=== PATIENT | female | born 1975 | race Caucasian/White ===

== ENCOUNTER 2016-05-10 15:34 | Emergency (ER) | payer OTHER ==
[~2016-05-10 15:34] MED LIST: ASPI81TA82 PO; FOLI400T30 PO; MULT-65 PO; PROG200C PO
--- NOTE | 2016-05-10 16:53 | PD ---
HPI Travel History International Travel<30 Days: No Contact w/Intl Traveler<30Days: No Known Affected Area: No History of Present Illness HPI This patient is a 40-year-old 9 para 0170 EDC is May 20, 2016 presently at 38 weeks and 4 days she presents with possibility of leaking fluid and irregular contractions Patient has a history of cerclage which was removed at 37 weeks she is GBS positive amnisure is negative care with Dr. De Los Santos course is significant only for the incompetent cervix with multiple spontaneous AB all before 12 weeks and the cerclage History Past Medical History Narrative Medical Ibuprofen gives her hives no major medical problems Obstetric History Obstetric History Spontaneous AB 7 patient delivered at 24 weeks female weight 1 lb. 14 oz. the baby Past Surgical History Narrative Surgical D&C and cerclage Family History Family History: Negative Social History Alcohol Use: No Tobacco Use: No Substance Abuse: No Allergies-Medications (Allergen,Severity, Reaction): Coded Allergies: Ciprofloxacin (Verified Allergy, Intermediate, 11/16/15) FACE TURNED RED Ibuprofen (Verified Allergy, Mild, Hives, 11/16/15) Home Meds Reported Medications Multiple Vitamin (Multi-Vitamin Daily)Daily Tab1 Tab PO DAILY 11/16/15 Folic Acid (Folate)400 Mcg Mel532 Mcg PO DAILY 11/16/15 Progesterone Micronized (Progesterone)200 Mg Iny857 Mg PO BID 11/10/15 Aspirin (Aspir-81)81 Mg Tab81 Mg PO HS 11/10/15 Review of Systems Genitourinary: Other (leaking fluid) Physical Exam Narrative GENERAL: Well-nourished, well-developed patient. Alert oriented 3 and cooperative in no acute distress CARDIOVASCULAR: Regular rate and rhythm without murmurs, gallops, or rubs. RESPIRATORY: Breath sounds equal bilaterally. No accessory muscle use. ABDOMEN/GI: Gravid consistent with stated gestational age Gravid to [-] weeks size Fundal Height: [-] GENITOURINARY: External Genitalia: intact and normal in appearance BUS glands: [-] Cervix: [-] Midline Dilatation: [-] 3 cm Effacement: [-] 50% effaced Station: [-] -2 stage Presentation: [-] Vertex Membranes: [intact Uterine Contractions: [-] Irregular FHT's: Category: [-]1 Baseline: [-] 140 Reactive: [-] + Variability: [-] Moderate idma-bo-mnxi variability Decels: [-] 0 EXTREMITIES: No cyanosis or edema. 2+ reflexes BACK: Nontender without obvious deformity. No CVA tendernes NEUROLOGICAL: Awake and alert. Motor and sensory grossly within normal limits. Five out of 5 muscle strength in all muscle groups. Normal speech. Data Data Vital Signs Reviewed: Yes (blood pressures 130/80 pulse 101 she is afebrile) [facility] Medical Record Reviewed: No Interpretation(s) 40-year-old 9 para 0 at 38 weeks and 4 days Not in labor No clinical evidence of ruptured membranes Advanced maternal age Incompetent cervix Status post cerclage removal Plan Patient has been monitored externally We'll discharge patient home Limited physical activity by mouth fluid hydration kick counts Keep next appointment with Dr. De Los Santos Physician Communication Spoke with Dr. De Los Santos he agrees with evaluation and management Diagnosis Diagnosis: Primary Impression: [place] Elena contractions Additional Impressions: Advanced maternal age in multigravida Qualified Code: O09.523 - Advanced maternal age in multigravida, third trimester History of incompetent cervix, currently Qualified Code: O09.293 - History of incompetent cervix, currently , third trimester Ruled Out: ruled out rupture of membranes Disposition: 01 DISCHARGE HOME Condition: Stable Patient Instructions: General Instructions, Early Labor Signs (ED), Movement (ED) Departure Forms: Tests/Procedures Adry Aceves MD May 10, 2016 16:53
== END 2016-05-10 16:50 | disposition home or self-care (01) ==
LOC: HOBED 15:34
DX: O47.1 False labor at or after 37 completed weeks of gestation (principal); Z3A.38 38 weeks gestation of pregnancy; O09.523 Supervision of elderly multigravida, third trimester; O34.33 Maternal care for cervical incompetence, third trimester
CPT/HCPCS: 59025; 84112

== ENCOUNTER 2016-05-13 10:07 | Inpatient (IN) | payer OTHER ==
[2016-05-13] VITALS (23 sets, daily range): BP systolic 100–146; BP diastolic 59–89; PULSE 101–128; RESP 18–20; TEMP 98.4–100.9
[2016-05-13] MEDS: OXYTOCIN 30 UNITS/NS 500ML PREMIX IV SCH ×2 (00:58→14:10)
[2016-05-13] MEDS ORDERED: LACTATED RINGER'S 1000 ML INJ 1,000 ML IV PRN (10:42)
--- NOTE | 2016-05-13 10:42 | HHI.HP ---
HPI Chief Complaint Complains of contractions every 5 minutes Date Seen: May 13, 2016 Travel History International Travel<30 Days: No Contact w/Intl Traveler<30Days: No History of Present Illness HPI This patient is a 40-year-old white female A 5 who is now 39 weeks presents complaining of contractions every 5 minutes since yesterday afternoon they're getting stronger and more painful. She denies bleeding or rupture the membranes. Baby is active. heart rate tracing is reactive. She is faye every 5 minutes fairly strongly. She is followed by Dr. Darrin De Los Santos for OB care and he will be notified of patient's admission Para: 1 : 7 Miscarriage: 5 History Obstetric History Obstetric History Patient with multiple early losses after delivering at 23 weeks in 2014 and that baby did not survive, she had an cervical cerclage in this Past Surgical History Narrative Surgical Patient has had several D&Cs Social History Alcohol Use: No Tobacco Use: No Substance Abuse: No Allergies-Medications (Allergen,Severity, Reaction): Coded Allergies: Ciprofloxacin (Verified Allergy, Intermediate, 11/16/15) FACE TURNED RED Ibuprofen (Verified Allergy, Mild, Hives, 11/16/15) Home Meds Reported Medications Multiple Vitamin (Multi-Vitamin Daily)Daily Tab1 Tab PO DAILY 11/16/15 Folic Acid (Folate)400 Mcg Jph316 Mcg PO DAILY 11/16/15 Progesterone Micronized (Progesterone)200 Mg [id number] Mg PO BID 11/10/15 Aspirin (Aspir-81)81 Mg Tab81 Mg PO HS 11/10/15 Review of Systems General / Constitutional: No: Fever, Weight Gain, Chills, Other Eyes: No: Diploplia, Blurred Vision, Visual changes, Pain, Photophobia HENT: No: Headaches, Vertigo, Lightheadedness Cardiovascular: No: Irregular Rhythm, Chest Pain or Discomfort, Palpitations, Tachycardia, Syncope, Varicosities, Edema, Cyanosis Respiratory: No: Cough, Short of Breath, Other Gastrointestinal: Abdominal Pain, No: Nausea, Vomiting, Diarrhea Genitourinary: No: Decreased Urinary Output, Oliguria Musculoskeletal: No: Limited ROM, Weakness, Cramping, Edema, Pain Skin: No Rash, No Itching, No Dryness, No Lumps, No Change in Pigmentation, No Change in Nails, No Alopecia, No Lesions Neurologic: No: Weakness, Dizziness, Syncope, Focal Abnormalities, Coordination Problem, Headache, Slurred Speech, Seizures Psychiatric: No: Depression, Suicidal Ideations, Homicidal Ideation Endocrine: No: Heat Intolerance, Cold Intolerance, Polydipsia, Polyuria, Other Physical Exam Narrative GENERAL: Well-nourished, well-developed patient. SKIN: Warm and dry. HEAD: Normocephalic and atraumatic. EYES: No scleral icterus. No injection or drainage. ENT: No nasal drainage noted. Mucous membranes pink. Airway patent. NECK: Supple, trachea midline. No JVD. CARDIOVASCULAR: Regular rate and rhythm without murmurs, gallops, or rubs. RESPIRATORY: Breath sounds equal bilaterally. No accessory muscle use. BREASTS: Bilateral exam showed no masses , no retractions, no nipple discharge. ABDOMEN/GI: Abdomen soft, non-tender, bowel sounds present, no rebound, no guarding Gravid to [39-] weeks size Fundal Height: [39 cm-] GENITOURINARY: External Genitalia: intact and normal in appearance BUS glands: [-] Cervix: [-] Dilatation: [-4] Effacement: [80] Station: [-2] Presentation: [vtx-] Membranes: [intact ] Uterine Contractions: [q 5 min-] FHT's: Category: [1-] Baseline: [144-] Reactive: [yes-] Variability: [-mod] Decels: [none-] EXTREMITIES: No cyanosis or edema. BACK: Nontender without obvious deformity. No CVA tenderness. NEUROLOGICAL: Awake and alert. Motor and sensory grossly within normal limits. Five out of 5 muscle strength in all muscle groups. Normal speech. Assessment/Plan Assessment and Plan This patient is a 40-year-old white female A5 at 39 weeks gestation now in early labor. She is dilated 4 cm 80% and -2 station with intact membranes, she is followed by Dr. De Los Santos for OB care will be notified of patient's admission heart rate tracing is reactive contractions are seen and noted to be regular and quite firm. Plan to admit the patient for labor and anticipate vaginal delivery Héctor Reina II, MD May 13, 2016 10:42
[2016-05-13] MEDS ORDERED: OXYTOCIN 30 UNITS-500ML PREMIX 500 ML IV ONE (10:45)
[2016-05-13] MEDS ORDERED: MINERAL OIL 10 ML VIAL TOPICAL PRN (10:45)
[2016-05-13] MEDS ORDERED: LIDOCAINE HCL 1% 50 ML VIAL INFIL PRN (10:45)
[2016-05-13] MEDS ORDERED: LIDOCAINE HCL 1% 50 ML VIAL I-DERMAL PRN (10:45)
[2016-05-13] MEDS ORDERED: SODIUM CHLORID 0.9% 500 ML INJ 500 ML IV PRN (10:45)
[2016-05-13] MEDS ORDERED: CITRIC ACID-SODIUM CITRATE LIQ 30 ML UDC PO SCH (10:45)
[2016-05-13] MEDS ORDERED: PENICILLIN G POTASSIUM INJ 5,000,000 UNITS in SODIUM CHLORIDE 0.9% INJ 100 ML IV ONE (11:00)
[2016-05-13] MEDS ORDERED: SODIUM CHLOR 0.9% 1000 ML INJ 1,000 ML IV PRN (11:02)
[2016-05-13 11:16] LABS: AUTOMATED NEUTROPHIL # 14.6 TH/MM3 (1.8-7.7); BASOPHIL % 0.2 % (0.0-2.0); EOSINOPHIL % 0.1 % (0.0-4.0); HEMATOCRIT 34.7 % (35.0-46.0); HEMO FLAGS DIFF FINAL; LYMPHOCYTE # 0.7 TH/MM3 (1.0-4.8); MEAN CELL VOLUME 83.8 FL (80.0-100.0); MEAN CORPUSCULAR HEMOGLOBIN 28.8 PG (27.0-34.0); MEAN CORPUSCULAR HGB CONC 34.4 % (32.0-36.0); MONO % 8.6 % (0.0-8.0); NEUT % 87.1 % (16.0-70.0); PLATELET COUNT 205 TH/MM3 (150-450); RED BLOOD COUNT 4.14 MIL/MM3 (4.00-5.30); RED CELL DISTRIBUTION WIDTH 14.1 % (11.6-17.2); WHITE BLOOD COUNT 16.8 TH/MM3 (4.0-11.0)
[2016-05-13 11:33] LABS: BACTERIA, URINE FEW /hpf; BLOOD, URINE MOD (NEG); COMMENT (UR) CULTURE INDICATED; CULTURE IF INDICATED CULTURE INDICATED; GLUCOSE,URINE NEG (NEG); KETONE, URINE 40 mg/dL (NEG); MUCUS URINE FEW /lpf (OCC); NITRITE,URINE NEG (NEG); PH, URINE 6.5 (5.0-8.5); SQUAMOUS EPITHELIAL CELL URINE 13 /hpf (0-5); URINE COLOR YELLOW (YELLW/STRAW)
[2016-05-13] MEDS ORDERED: fentaNYL 2MCG-BUPIV 0.125% INJ 100 ML ONE (11:44)
[2016-05-13] MEDS: LACTATED RINGER'S 1000 ML INJ 1,000 ML IV SCH ×2 (12:00→18:42)
[2016-05-13] MEDS ORDERED: NO SYSTEM NARCOTICS XX PRN (13:00)
[2016-05-13] MEDS ORDERED: fentaNYL 2MCG-BUPIV 0.125% INJ 100 ML EPIDURAL SCH (13:00)
[2016-05-13] MEDS ORDERED: DO NOT ADMINISTER ANTICOAGULANTS XX PRN (13:00)
[2016-05-13] MEDS ORDERED: ePHEDrine/NS 50 MG/5 ML SYR IV PRN (13:00)
[2016-05-13] MEDS: PENICILLIN G POTASSIUM INJ 2,500,000 UNITS in SODIUM CHLORIDE 0.9% INJ 100 ML IV SCH ×2 (15:00→18:49)
[2016-05-13] MEDS ORDERED: AMPICILLIN-SULBACTAM INJ 3 GM VIAL IM SCH (20:15)
[2016-05-13] MEDS ORDERED: ACETAMINOPHEN 1000 MG/100 ML VIAL IV ONE (20:15)
[2016-05-13] MEDS ORDERED: AMPICILLIN-SULBACTAM INJ 3 GM in SODIUM CHLORIDE 0.9% INJ 100 ML IV SCH (21:00)
[2016-05-14] MEDS ORDERED: MISOPROSTOL 200 MCG TAB ONE (00:17)
--- NOTE | 2016-05-14 00:29 | PD.OB.DELI ---
Delivery Date: May 14, 2016 Anesthesia: Epidural Episiotomy: None Vaginal Delivery: Normal Presentation: Occiput anterior Nuchal Cord: x1 (double clamped and cut at perineum) Infant: Male One Minute : 8 Five Minute : 9 Weight: 7 lb 5 oz Infant Care: Suctioned, Spontaneous crying Placenta: Spontaneous delivery Laceration: 2 deg Repair: Chromic running (multilayer) Additional Information EBL 700ml. 300ml of clots at cervix, manual massage and misoprostol 600 micrograms given. Alana Flowers MD May 14, 2016 00:29
[2016-05-14] MEDS ORDERED: DOCUSATE SODIUM 50 MG/SENNA 8.6 MG TAB PO PRN (00:30)
[2016-05-14] MEDS ORDERED: WITCH HAZEL 50%/GLYCERIN 12.5% 40 PAD JAR TOPICAL PRN (00:30)
[2016-05-14] MEDS ORDERED: ONDANSETRON ODT 4 MG TAB PO PRN (00:30)
[2016-05-14] MEDS ORDERED: SODIUM CHLORIDE 0.9% FLUSH 5 ML FLUSH IV PRN (00:30)
[2016-05-14] MEDS ORDERED: ALUMINUM/MAGNESIUM/SIMETH 30 ML CUP PO PRN (00:30)
[2016-05-14] MEDS ORDERED: ZOLPIDEM TARTRATE 5 MG TAB PO PRN (00:30)
[2016-05-14] MEDS ORDERED: IBUPROFEN 600 MG TAB PO PRN (00:30)
[2016-05-14] MEDS ORDERED: BENZOCAINE 20% TOPICAL SPRAY 60 ML CAN TOPICAL PRN (00:30)
[2016-05-14] MEDS ORDERED: oxyCODONE/ACETAMINOPHEN 5 MG/325 MG TAB PO PRN (00:30)
[2016-05-14] MEDS ORDERED: MISOPROSTOL 200 MCG TAB PV ONE (01:15)
[2016-05-14] MEDS: ACETAMINOPHEN 325 MG TAB PO PRN ×2 (04:47→09:57)
[2016-05-14 08:39] VITALS: BP 135/74; PULSE 103; RESP 18; TEMP 97.9
[2016-05-14] MEDS ORDERED: SODIUM CHLORIDE 0.9% FLUSH 5 ML FLUSH IV SCH (09:00)
--- NOTE | 2016-05-14 10:51 | HHI.OB ---
Subjective Post Day: 1 Remarks doing well, some perineal pain and cramping with feeding. Min to mod lochia. Objective Vitals/I&O Vital Signs Date Time Temp Pulse Resp B/P Pulse Ox O2 Delivery O2 Flow Rate FiO2 05/14/16 08:39 103 18 135/74 05/14/16 08:39 97.9 05/13/16 21:01 120 137/69 05/13/16 20:45 119 135/65 05/13/16 20:30 120 122/59 05/13/16 20:18 20 05/13/16 20:15 123 136/74 05/13/16 20:00 114 140/81 05/13/16 19:56 100.9 05/13/16 18:30 112 117/70 05/13/16 18:18 128 146/66 05/13/16 18:15 100/83 05/13/16 18:00 98.4 05/13/16 18:00 111 18 127/72 05/13/16 17:45 104 123/80 05/13/16 17:30 105 18 127/79 05/13/16 17:15 101 127/79 05/13/16 17:00 102 18 121/80 05/13/16 16:45 123/84 05/13/16 16:45 108 05/13/16 16:30 103 121/77 05/13/16 16:15 102 127/76 05/13/16 16:00 98.4 18 05/13/16 16:00 102 124/79 05/13/16 15:45 18 05/13/16 15:45 102 135/78 05/13/16 15:30 104 136/89 05/13/16 15:15 102 128/81 05/13/16 15:00 101 126/78 05/13/16 15:00 18 05/13/16 12:01 18 Objective Remarks GENERAL: Well-nourished, well-developed patient. CARDIOVASCULAR: Regular rate and rhythm without murmurs, gallops, or rubs. RESPIRATORY: Breath sounds equal bilaterally. No accessory muscle use. ABDOMEN/GI: Abdomen soft, non-tender. Fundus: Firm, non-tender at umbilicus. GENITOURINARY: Light to moderate bleeding. EXTREMITIES: No cyanosis or edema, non-tender, without signs of DVT. Medications and IVs Current Medications Medications (Trade) Dose Ordered Sig/Joanne Route Start Time Stop Time Status Last Admin (NS Flush) 2 ml BID IV 05/14/16 09:00 (NS Flush) 2 ml UNSCH PRN IV 05/14/16 00:30 (Tylenol) 650 mg Q4H PRN PO 05/14/16 00:30 05/14/16 09:57 (Percocet 5-325 Mg) 1 tab Q4H PRN PO 05/14/16 00:30 (Americaine 20% Top Spr) 1 spray Q4H PRN TOPICAL 05/14/16 00:30 05/14/16 04:47 (Tucks Pads) 1 applic QID PRN TOPICAL 05/14/16 00:30 05/14/16 04:47 (Aleja-Colace) 2 tab Q12H PRN PO 05/14/16 00:30 05/14/16 09:57 (Ambien) 5 mg HS PRN PO 05/14/16 00:30 (M-M-R Ii Inj) 0.5 ml ONCE ONCE SQ 05/14/16 16:00 05/14/16 16:01 (Boostrix Inj) 0.5 ml ONCE ONCE IM 05/14/16 16:00 05/14/16 16:01 (Mag-Al Plus Susp Liq) 15 ml Q8H PRN PO 05/14/16 00:30 (Zofran Odt) 4 mg Q6H PRN PO 05/14/16 00:30 Assessment/Plan Assessment and Plan PPD 1 s/p - cont routine supportive care - had temp, maternal and tachycardia during labor that resolved with IV tylenol. She was given unasyn. placental cultures sent, result pending. no current fever Alana Flowers MD May 14, 2016 10:51
--- NOTE | 2016-05-14 12:00 | HHI.DCPOC ---
Discharge Care Plan Diagnosis: (1) Advanced maternal age in multigravida (2) Cervical incompetence during in second trimester (3) (spontaneous vaginal delivery) Your Health Problems Are: Vaginal delivery Report Symptoms to Your Doctor -Temperate above 100.5 degrees -Redness, of incision or excessive or foul smelling drainage -Unusual pain or calf pain -Increased vaginal bleeding -Painful or difficulty urinating -Feelings of extreme sadness or anxiety after 2 weeks Goals to Promote Your Health * To prevent worsening of your condition and complications * To maintain your health at the optimal level Directions to Meet Your Goals Take your medications as prescribed Follow your dietary instruction Follow activity as directed Ensure plenty of rest for recovery Drink fluids for hydration Keep your appointments as scheduled Take your immunizations and boosters as scheduled If your symptoms worsen call your PCP, if no PCP go to Urgent Care Center or Emergency Room Smoking is Dangerous to Your Health. Avoid second hand smoke Call the 24-hour crisis hotline for domestic abuse at Alana Flowers MD May 14, 2016 12:00
[2016-05-14 15:30] VITALS: BP 114/66; PULSE 98; RESP 16; TEMP 98.2
[2016-05-14] MEDS ORDERED: MEASLES, MUMPS, RUBELLA VACCINE 0.5 ML VIAL SQ ONE (16:00)
[2016-05-14] MEDS ORDERED: DIPHTH/TETANUS/ACEL PERTUSSIS (BOOSTER) 0.5 ML VIAL/PFS IM ONE (16:00)
[2016-05-14 20:37] VITALS: BP 112/68; PULSE 95; RESP 16; TEMP 98.7
[2016-05-15 08:00] VITALS: BP 123/78; PULSE 98; RESP 16; TEMP 97.9
--- NOTE | 2016-05-15 08:41 | HHI.OB ---
Subjective Post Day: 2 Remarks PPD#2; Doing well Objective Vitals/I&O Vital Signs Date Time Temp Pulse Resp B/P Pulse Ox O2 Delivery O2 Flow Rate FiO2 05/14/16 20:37 98.7 95 16 112/68 05/14/16 15:30 98 114/66 05/14/16 15:30 98.2 16 Objective Remarks GENERAL: Well-nourished, well-developed patient. CARDIOVASCULAR: Regular rate and rhythm without murmurs, gallops, or rubs. RESPIRATORY: Breath sounds equal bilaterally. No accessory muscle use. ABDOMEN/GI: Abdomen soft, non-tender. Fundus: Firm, non-tender at umbilicus. GENITOURINARY: Light to moderate bleeding. EXTREMITIES: No cyanosis or edema, non-tender, without signs of DVT. Medications and IVs Current Medications Medications (Trade) Dose Ordered Sig/Joanne Route Start Time Stop Time Status Last Admin (NS Flush) 2 ml BID IV 05/14/16 09:00 (NS Flush) 2 ml UNSCH PRN IV 05/14/16 00:30 (Tylenol) 650 mg Q4H PRN PO 05/14/16 00:30 05/14/16 09:57 (Percocet 5-325 Mg) 1 tab Q4H PRN PO 05/14/16 00:30 (Americaine 20% Top Spr) 1 spray Q4H PRN TOPICAL 05/14/16 00:30 05/14/16 04:47 (Tucks Pads) 1 applic QID PRN TOPICAL 05/14/16 00:30 05/14/16 04:47 (Aleja-Colace) 2 tab Q12H PRN PO 05/14/16 00:30 05/14/16 09:57 (Ambien) 5 mg HS PRN PO 05/14/16 00:30 (Mag-Al Plus Susp Liq) 15 ml Q8H PRN PO 05/14/16 00:30 (Zofran Odt) 4 mg Q6H PRN PO 05/14/16 00:30 Assessment/Plan Assessment and Plan PPD 2 s/p - cont routine supportive care; Plan discharge today Discharge Planning routine Attending Attestation seen by Jordan Cronin MD May 15, 2016 08:41
--- NOTE | 2016-05-15 09:07 | PD.CIRC ---
Circumcision Procedure Note Procedure: Circumcision Pre-procedure diagnosis: circumcision Post-procedure diagnosis: circumcision Informed Consent: The risks, benefits, indications, potential complications, and alternatives were explained to the patient/family and informed consent obtained. The baby was brought to the procedure room where a time-out was done to ID the patient and the procedure. Performing Physician: Jordan De Los Santos Anesthesia used: 1% lidocaine injected Type of block: dorsal penile block Device used: Mogen Description: The baby was prepped and draped in a sterile fashion. The procedure followed standard technique. The baby tolerated the procedure well without complication. Findings: Normal external genitalia Estimated blood loss: none Specimen: No Jordan De Los Santos MD May 15, 2016 09:07
[2016-05-15] MEDS: ACETAMINOPHEN 325 MG TAB PO PRN (12:22)
== END 2016-05-15 13:44 | disposition home or self-care (01) | DRG 774 ==
LOC: HOBED 10:07 → H2EB 10:41 → H1EA 05-14 02:13
PROVIDERS: ADMIT Obstetrics & Gynecology; ATTEND Obstetrics & Gynecology
PROC: 10E0XZZ Delivery of Products of Conception, External Approach (ICD-10-PCS; principal; 2016-05-14)
PROC: 0KQM0ZZ Repair Perineum Muscle, Open Approach (ICD-10-PCS; 2016-05-14)
DX: O69.81X0 Labor and delivery complicated by cord around neck, without compression, not applicable or unspecified (principal); O75.2 Pyrexia during labor, not elsewhere classified; O09.523 Supervision of elderly multigravida, third trimester; O70.1 Second degree perineal laceration during delivery; O76 Abnormality in fetal heart rate and rhythm complicating labor and delivery; Z37.0 Single live birth; Z3A.39 39 weeks gestation of pregnancy
CPT/HCPCS: 81001; 85025; 86900; 86901; 87070; 87086; 87205; 99285; J0131; J0295; J2540; J2590; J3010; J7030; J7120